=== PATIENT | female | born 1960 | race Hispanic/Latino ===

== ENCOUNTER 2025-06-06 17:40 | Emergency (ER) | payer OTHER ==
[~2025-06-06 17:40] MED LIST: Iopamidol 300 61% 100 ML VIAL FS ONE
[2025-06-06 19:13] LABS: Hematocrit 28.0 % (34.9-44.5); Hemoglobin 9.0 g/dL (12.0-15.5); Mean Corpuscular Hemoglobin 26.4 pg (27.0-33.0); Mean Corpuscular Volume 82.1 fL (81.6-98.3); Platelet Count 383 10x3/uL (150-450); Red Blood Cell (RBC) Count 3.41 10x6/uL (3.90-5.03); White Blood Cell (WBC) Count 18.08 10x3/uL (3.5-10.5)
[2025-06-06 19:23] LABS: ALT (SGPT) 10 U/L (Less than 34); AST (SGOT) 18 U/L (11-34); Albumin 2.6 g/dL (3.1-4.5); Alkaline Phosphatase 111 U/L (40-110); Anion Gap 13 mmol/L (10-20); BUN (Urea Nitrogen) 39 mg/dL (9.8-20.1); Bilirubin, Total 0.2 mg/dL (0.3-1.2); Calc. Creatinine Clearance 0 mL/min (70-130); Calcium 8.9 mg/dL (7.8-10.44); Carbon Dioxide 24 mmol/L (23-31); Chloride 87 mmol/L (98-107); Globulin 5.0 g/dL (2.4-3.5); Potassium 5.2 mmol/L (3.5-5.1)
[2025-06-06 19:31] LABS: Glucose 925 mg/dL (80-115); Sodium 119 mmol/L (136-145)
[2025-06-06 19:54] LABS: MDiff Complete? YES; Platelet Adequacy Comment Appears Adequate; RBC Morphology Within Normal Limits
[2025-06-06 20:17] LABS: Actual Bicarbonate (HCO3v) 23.7 mEq/L (22-28); Analyzer IN Cardio CS ER; Base Excess -1.6 mEq/L (-2 - +2); Calcium, Ionized (venous) 1.03 mmol/L (1.16-1.32); Chloride (VBG) 90 mmol/L (98-106); Hematocrit-VBG 29 % (36.0-47.0); Hemoglobin (Hb) 9.9 g/dL (11.7-16.0); Potassium (VBG) 5.63 mmol/L (3.70-5.30); Puncture Site Other Site; RapidComm Collect By Lab; Sodium 121 mmol/L (133-146)
[2025-06-06] MEDS ORDERED: cefTRIAXone (ROCEPHIN) 2 GM VIAL ONE (20:22)
[2025-06-06 20:40] LABS: Troponin I 0.012 ng/mL (< 0.028)
[2025-06-06 20:41] LABS: Glucose, Urine (Dipstick) >=1000 mg/dL (Negative); Leukocyte Negative (Negative); Protein, Urine (Dipstick) Negative (Neg-Trace); Specific Gravity, Urine 1.005 (1.005-1.030)
[2025-06-06 20:50] LABS: Bacteria/HPF 2+ HPF (None Seen); CAUTI Indications for Culture Pelvic or flank pain; Mucous/LPF 1+ LPF (<2+); RBC/HPF 0-3 HPF (0-3); WBC/HPF 0-3 HPF (0-3)
[2025-06-06 20:51] LABS: Urine Culture Reflex No No
[2025-06-06 20:53] LABS: Magnesium 1.5 mg/dL (1.6-2.6)
[2025-06-06] MEDS ORDERED: VANCOMYCIN 1.75 GM/350 ML BAG 1.75 GM in Premix 1 BAG IVPB SCH (21:00)
[2025-06-06 21:14] LABS: Anion Gap 13 mmol/L (10-20); BUN (Urea Nitrogen) 39 mg/dL (9.8-20.1); Calc. Creatinine Clearance 0 mL/min (70-130); Calcium 8.2 mg/dL (7.8-10.44); Carbon Dioxide 20 mmol/L (23-31); Chloride 89 mmol/L (98-107)
[2025-06-06 21:28] LABS: Glucose 889 mg/dL (80-115); Potassium 5.6 mmol/L (3.5-5.1); Sodium 116 mmol/L (136-145)
[2025-06-06] MEDS ORDERED: INSULIN REGULAR IN 0.9 % NACL 100 ML ONE (22:28)
[2025-06-06 22:55] LABS: Osmolality, Serum 320 mOsm/kg (280-301)
[2025-06-07 00:12] LABS: Anion Gap 11 mmol/L (10-20); BUN (Urea Nitrogen) 34 mg/dL (9.8-20.1); Calc. Creatinine Clearance 0 mL/min (70-130); Calcium 7.2 mg/dL (7.8-10.44); Carbon Dioxide 20 mmol/L (23-31); Chloride 102 mmol/L (98-107); Potassium 3.8 mmol/L (3.5-5.1); Sodium 129 mmol/L (136-145)
[2025-06-07] MEDS ORDERED: NS 0.9% w/ 20 MEQ KCL 1,000 ML ONE (00:27)
[2025-06-07 00:40] LABS: Glucose 555 mg/dL (80-115)
== END 2025-06-07 00:57 | disposition short-term general hospital (02) ==
LOC: CSHERS 17:40
DX: A41.9 Sepsis, unspecified organism (principal); L02.214 Cutaneous abscess of groin; N73.9 Female pelvic inflammatory disease, unspecified; E11.65 Type 2 diabetes mellitus with hyperglycemia; D64.9 Anemia, unspecified; R94.4 Abnormal results of kidney function studies; I10 Essential (primary) hypertension; Z75.8 Other problems related to medical facilities and other health care
CPT/HCPCS: 36415; 36416; 74177; 80053; 81001; 82805; 83605; 83735; 83930; 84100; 84484; 85025; 87040; 87086; 93005; 96365; 96366; 96367; 96375; 96376; J0696; J1815; J3010; J3375; J3480; Q9967